=== PATIENT | male | born 1945 | race Caucasian/White ===

== ENCOUNTER → 2017-01-12 13:04 | Outpatient (CLI) | payer MEDICARE, OTHER ==
[2014-12-01 13:54] VITALS: BMI 31.5
[~2017-01-12 13:04] MED LIST: ALBUTEROL0.63 MG/3 INH; BAYER CHEWABLE81 MG PO; BENADRYL25 MG PO; BENADRYL50 MG PO; COUMADIN5 MG PO; ELIQUIS2.5 MG PO; FLUTICASONE PRO16 GM NASAL; GLUCOPHAGE500 MG PO; HYDROCODONE-APA1 TAB PO; MEDROL DOSE PACK4 MG PO; MS CONTIN15 MG PO; PERCOCET 10/3251 TA1 PO; PLAVIX75 MG PO; PRILOSEC20 MG PO; PROAIR HFA8.5 GM INH; PROPYLTHIOURACI50 MG PO; UROXATRAL10 MG PO; ZIAC 10-6.25 MG1 TAB PO; ZOCOR40 MG PO
== END | disposition home or self-care (01) ==
LOC: D.RT 13:04
DX: J44.9 Chronic obstructive pulmonary disease, unspecified (principal)

== ENCOUNTER 2017-09-17 18:20 | Inpatient (IN) | payer MEDICARE, OTHER ==
[~2017-09-17] VITALS: Ht 167.6 cm; Wt 85.5 kg
--- NOTE | ~2017-09-17 | EC ---
PATIENT:DON MORA DATE OF SERVICE: 09/17/17 SEX: M MEDICAL RECORD: [id number] DATE OF : [birth year] LOCATION:D.M2 D.213 AGE OF PATIENT: 72 ADMISSION DATE: 09/17/17 REFERRING PHYSICIAN: INTERPRETING PHYSICIAN: MIRIAM MCLAUGHLIN MD ECHOCARDIOGRAM REPORT ECHO CHARGES 4 ECHO COMPLETE Date: 09/19 CLINICAL DIAGNOSIS: CHF ECHOCARDIOGRAPHIC MEASUREMENTS (adult normal given) AC root (d.<3.7cm) 3.1 cm LV Septum d (<1.2 cm> 0.9 cm Valve Excursion 1.9 cm LV Septum (systole) 1.4 cm Left Atria (s.<4.0cm> 3.3 cm LVPW d(<1.2cm) 0.8 cm RV (d.<2.3cm) 3.0 cm LVPW (sytole) 1.5 cm LV diastole(<5.6CM) 6.2 cm MV E-F(>70mm/sec) cm LV systole 4.2 cm LVOT Diameter 1.5 cm MV exc.(>10mm) cm Est.ejection fraction (50-75%) % DOPPLER: LVIT cm/sec A 89.0 cm/sec E 64.0 cm/sec LA cm/sec RVSP 79.2 mmHg LVOT 64.0 cm/sec AOP1/2T m/s Asc. Ao 120 cm/sec RVOT 58.0 cm/sec RA cm/sec PA 85.0 cm/sec AV Gradient Peak 5.8 mmHg AV Mean 2.5 mmHg AV Area 0.9 cm MV Gradient Peak 4.8 mmHg MV Mean 1.6 mmHg MV Area cm COMMENTS: Soccer Player: Sina BAINSOE Reservation Clerk: 1 Dr. Mclaughlin TAPE# PACS Pericardial Effusion N DATE OF SERVICE: 09/19/2017 PROCEDURE: Echocardiogram. FINDINGS: 1. Left ventricular chamber size is mildly dilated. Left ventricular systolic function is markedly reduced, overall ejection fraction 20%. 2. Left atrium is within normal limits at 3.3 cm. Right atrium and right ventricle chamber sizes are mildly dilated. 3. Valvular structures have normal structure and motion. ECHOCARDIOGRAM REPORT [id number] DON MORA 4. Doppler interrogation reveals moderate mitral regurgitation, severe tricuspid regurgitation, no other valvular insufficiency or stenosis. Pulmonary systolic pressure is estimated at 80 mmHg. 5. No evidence of pericardial effusion or left ventricular thrombus. TRANSINT:[id number] Voice Confirmation ID: [id number] DOCUMENT ID: [id number] MIRIAM MCLAUGHLIN MD at 1218 CC: [id number] DICTATION DATE: 09/19/17 1129 GAMING SURVEILLANCE OBSERVER: 09/19/17 1255 ADM IN [facility] [address] [id number]
[2017-09-17 18:50] LABS: BASOPHILS 0.2 % (0-2); EOSINOPHILS 0.2 % (0-7); HEMATOCRIT 25.9 % (42.0-54.0); HEMOGLOBIN 7.6 g/dL (13.5-17.5); IMMATURE GRANULOCYTES 0.2 % (0-5); LYMPHOCYTES 7.5 % (15-50); MCH 22.4 pg (26.0-34.0); MCHC 29.3 g/dL (31.0-37.0); MCV 76.4 fL (80.0-100.0); MEAN PLATELET VOLUME 9.8 fL (7.4-10.4); MONOCYTES 10.8 % (2-11); NEUTROPHILS 81.1 % (40-80); RBC 3.39 10x6/uL (4.20-6.10); RDW 17.5 % (11.5-14.5); WBC 8.6 10x3/uL (4.8-10.8)
[2017-09-17 18:51] LABS: PLATELET COUNT 344 10x3/uL (130-400)
[2017-09-17 19:28] LABS: ALBUMIN 3.3 g/dL (3.4-5.0); ANION GAP 12.7 mmol/L (8-16); BILIRUBIN - TOTAL 0.52 mg/dL (0.2-1.3); CARBON DIOXIDE 31.2 mmol/L (21.0-32.0); CREATININE - SERUM 1.3 mg/dL (0.6-1.3); POTASSIUM - SERUM 3.9 mmol/L (3.5-5.1); PROTEIN - SERUM 6.7 g/dL (6.4-8.2); TROPONIN-I 0.028 ng/mL (0.000-0.060)
[2017-09-17] MEDS ORDERED: PLAVIX75 MG PO (21:08)
[2017-09-17] MEDS ORDERED: DIPHEDRYL25 MG PO (21:09)
[2017-09-17] MEDS ORDERED: ASPIRIN81 MG PO (21:10)
[2017-09-17 21:11] VITALS: BP 148/68; BMI 27.3
[2017-09-18] VITALS: BP 128/59
[2017-09-18 04:00] VITALS: BP 151/78
[2017-09-18 07:49] VITALS: BP 150/80
[2017-09-18 11:22] VITALS: BP 155/80
[2017-09-18 15:22] VITALS: BP 157/74
[2017-09-18 15:26] LABS: APTT 30.8 SECONDS (22.8-39.4); INR 1.29 (0.85-1.17); PROTIME 15.6 SECONDS (11.6-15.0)
[2017-09-18 15:28] LABS: D-DIMER-QUANTITATIVE 2.1 ug/mLFEU (0.20-0.54)
[2017-09-18 15:39] LABS: % SATURATION 4 % (15-55); IRON 21 ug/dl (35-150); TOTAL IRON BIND CAPACITY 427 ug/dl (260-445); UNSAT IRON BIND CAPACITY 406 ug/dl (150-375)
[2017-09-18 16:00] LABS: THYROID STIMULATING HORMONE 1.49 uIU/mL (0.36-3.74)
[2017-09-18 17:28] LABS: APPEARANCE CLEAR (CLEAR); BILIRUBIN NEGATIVE (NEGATIVE); COLOR YELLOW (YELLOW); GLUCOSE NEGATIVE (NEGATIVE); KETONE NEGATIVE (NEGATIVE); NITRITE NEGATIVE (NEGATIVE); PROTEIN NEGATIVE (NEGATIVE); UROBILINOGEN NORMAL (NORMAL)
[2017-09-18 20:00] VITALS: BP 142/64
[2017-09-19 04:00] VITALS: BP 144/64
[2017-09-19 05:45] LABS: BASOPHILS 0.1 % (0-2); HEMATOCRIT 27.3 % (42.0-54.0); HEMOGLOBIN 8.2 g/dL (13.5-17.5); IMMATURE GRANULOCYTES 0.2 % (0-5); LYMPHOCYTES 5.3 % (15-50); MCV 76.5 fL (80.0-100.0); MEAN PLATELET VOLUME 9.4 fL (7.4-10.4); MONOCYTES 10.3 % (2-11); NEUTROPHILS 83.1 % (40-80); RBC 3.57 10x6/uL (4.20-6.10); RDW 17.3 % (11.5-14.5); WBC 8.4 10x3/uL (4.8-10.8)
[2017-09-19 05:46] LABS: PLATELET COUNT 255 10x3/uL (130-400)
[2017-09-19 05:59] LABS: ANION GAP 6.9 mmol/L (8-16); CALCIUM 8.4 mg/dL (8.5-10.1); CARBON DIOXIDE 32.5 mmol/L (21.0-32.0); CREATININE - SERUM 1.1 mg/dL (0.6-1.3); POTASSIUM - SERUM 3.4 mmol/L (3.5-5.1)
[2017-09-19 06:00] LABS: INR 1.37 (0.85-1.17); PROTIME 16.4 SECONDS (11.6-15.0)
[2017-09-19 07:59] VITALS: BP 150/71
[2017-09-19 11:35] VITALS: BP 148/70
[2017-09-19 15:33] VITALS: BP 151/69
[2017-09-19 20:00] VITALS: BP 141/69
[2017-09-20] VITALS: BP 124/69
[2017-09-20 06:08] LABS: BASOPHILS 0.3 % (0-2); EOSINOPHILS 1.2 % (0-7); HEMOGLOBIN 8.2 g/dL (13.5-17.5); IMMATURE GRANULOCYTES 0.3 % (0-5); LYMPHOCYTES 7.5 % (15-50); MCH 22.6 pg (26.0-34.0); MCHC 29.3 g/dL (31.0-37.0); MCV 77.1 fL (80.0-100.0); MONOCYTES 11.1 % (2-11); NEUTROPHILS 79.6 % (40-80); PLATELET COUNT 282 10x3/uL (130-400); RBC 3.63 10x6/uL (4.20-6.10); RDW 17.6 % (11.5-14.5); WBC 7.5 10x3/uL (4.8-10.8)
[2017-09-20 06:21] LABS: CALCIUM 8.2 mg/dL (8.5-10.1); CARBON DIOXIDE 28.4 mmol/L (21.0-32.0); CREATININE - SERUM 1.3 mg/dL (0.6-1.3)
[2017-09-20 06:22] LABS: POTASSIUM - SERUM 4.4 mmol/L (3.5-5.1)
[2017-09-20 08:35] VITALS: BP 142/81
[2017-09-20 09:46] LABS: FOLATE (FOLIC ACID) - SERUM 5.2 ng/mL (>3.0)
[2017-09-20 11:42] VITALS: BP 148/76
[2017-09-20 15:40] VITALS: BP 146/76
[2017-09-20 20:00] VITALS: BP 150/69
[2017-09-21 01:51] VITALS: BP 143/74
[2017-09-21 05:51] LABS: BASOPHILS 0.2 % (0-2); EOSINOPHILS 0.8 % (0-7); HEMATOCRIT 28.5 % (42.0-54.0); HEMOGLOBIN 8.4 g/dL (13.5-17.5); IMMATURE GRANULOCYTES 0.2 % (0-5); LYMPHOCYTES 3.8 % (15-50); MCH 22.6 pg (26.0-34.0); MCHC 29.5 g/dL (31.0-37.0); MCV 76.6 fL (80.0-100.0); MEAN PLATELET VOLUME 9.5 fL (7.4-10.4); MONOCYTES 8.9 % (2-11); NEUTROPHILS 86.1 % (40-80); PLATELET COUNT 254 10x3/uL (130-400); RBC 3.72 10x6/uL (4.20-6.10); RDW 17.8 % (11.5-14.5); WBC 9.7 10x3/uL (4.8-10.8)
[2017-09-21 05:54] VITALS: BP 148/80
[2017-09-21 06:01] LABS: ANION GAP 11.9 mmol/L (8-16); CALCIUM 8.4 mg/dL (8.5-10.1); CARBON DIOXIDE 27.1 mmol/L (21.0-32.0); CREATININE - SERUM 1.1 mg/dL (0.6-1.3)
[2017-09-21 06:30] LABS: INR 1.48 (0.85-1.17); PROTIME 17.4 SECONDS (11.6-15.0)
[2017-09-21 08:18] VITALS: BP 141/69
[2017-09-21 11:09] VITALS: BP 144/72
[2017-09-21 14:16] VITALS: BMI 31.2
[2017-09-21 16:03] VITALS: BP 144/76
[2017-09-21 20:22] VITALS: BP 148/70
[2017-09-22 01:50] VITALS: BP 168/691
[2017-09-22 05:25] VITALS: BP 141/76
[2017-09-22 06:05] LABS: BASOPHILS 0.1 % (0-2); EOSINOPHILS 0.9 % (0-7); HEMATOCRIT 30.1 % (42.0-54.0); HEMOGLOBIN 8.8 g/dL (13.5-17.5); IMMATURE GRANULOCYTES 0.2 % (0-5); LYMPHOCYTES 5.3 % (15-50); MCH 22.6 pg (26.0-34.0); MCHC 29.2 g/dL (31.0-37.0); MCV 77.2 fL (80.0-100.0); MEAN PLATELET VOLUME 10.1 fL (7.4-10.4); MONOCYTES 7.8 % (2-11); NEUTROPHILS 85.7 % (40-80); PLATELET COUNT 277 10x3/uL (130-400); RDW 18.2 % (11.5-14.5); WBC 9.8 10x3/uL (4.8-10.8)
[2017-09-22 06:19] LABS: ANION GAP 13.4 mmol/L (8-16); CALCIUM 8.6 mg/dL (8.5-10.1); CARBON DIOXIDE 27.3 mmol/L (21.0-32.0); CREATININE - SERUM 1.1 mg/dL (0.6-1.3); POTASSIUM - SERUM 3.7 mmol/L (3.5-5.1)
[2017-09-22 08:35] VITALS: BP 158/70
[2017-09-22 11:40] VITALS: Ht 167.6 cm; Wt 85.5 kg
== END 2017-09-22 15:30 | disposition home or self-care (01) | DRG 811 ==
LOC: D.ER 18:20 → D.M2 19:07 → D.SDCHOLD 09-18 07:28 → D.M2 09-18 07:28
PROVIDERS: Family Medicine; Internal Medicine Gastroenterology; Internal Medicine Nephrology
PROC: 0DB78ZX Excision of Stomach, Pylorus, Via Natural or Artificial Opening Endoscopic, Diagnostic (ICD-10-PCS; 2017-09-19)
PROC: 0DB98ZX Excision of Duodenum, Via Natural or Artificial Opening Endoscopic, Diagnostic (ICD-10-PCS; principal; 2017-09-19 17:00)
PROC: 0DJD8ZZ Inspection of Lower Intestinal Tract, Via Natural or Artificial Opening Endoscopic (ICD-10-PCS; 2017-09-21)
DX: D50.9 Iron deficiency anemia, unspecified (principal); J96.21 Acute and chronic respiratory failure with hypoxia; I50.20 Unspecified systolic (congestive) heart failure; J44.1 Chronic obstructive pulmonary disease with (acute) exacerbation; I11.0 Hypertensive heart disease with heart failure; E11.51 Type 2 diabetes mellitus with diabetic peripheral angiopathy without gangrene; E78.5 Hyperlipidemia, unspecified; E05.90 Thyrotoxicosis, unspecified without thyrotoxic crisis or storm; K44.9 Diaphragmatic hernia without obstruction or gangrene; K29.70 Gastritis, unspecified, without bleeding; D51.9 Vitamin B12 deficiency anemia, unspecified; K64.8 Other hemorrhoids; K57.30 Diverticulosis of large intestine without perforation or abscess without bleeding

== ENCOUNTER → 2017-10-22 13:59 | Outpatient (CLI) | payer MEDICARE, OTHER ==
[2017-09-22 11:40] VITALS: BMI 31.2
[~2017-10-22 13:59] MED LIST changes: +ASPIRIN81 MG PO; +DIPHEDRYL25 MG PO
== END | disposition home or self-care (01) ==
LOC: D.CT 13:59
DX: R77.8 Other specified abnormalities of plasma proteins (principal)

== ENCOUNTER → 2017-12-04 07:46 | Outpatient (CLI) | payer MEDICARE, OTHER ==
[2017-09-22 11:40] VITALS: BMI 31.2
== END | disposition home or self-care (01) ==
LOC: D.NM 07:46
DX: C61 Malignant neoplasm of prostate (principal)

== ENCOUNTER → 2018-01-24 12:57 | Outpatient (CLI) | payer MEDICARE, OTHER ==
[2017-09-22 11:40] VITALS: BMI 31.2
== END | disposition home or self-care (01) ==
LOC: D.MRI 12:57
DX: M54.6 Pain in thoracic spine (principal)

== ENCOUNTER → 2018-02-11 13:43 | Outpatient (CLI) | payer MEDICARE, OTHER ==
[2017-09-22 11:40] VITALS: BMI 31.2
== END | disposition home or self-care (01) ==
LOC: D.RT 13:43
DX: J44.9 Chronic obstructive pulmonary disease, unspecified (principal)

== ENCOUNTER → 2019-04-11 09:38 | Outpatient (CLI) | payer MEDICARE, OTHER ==
[2017-09-22 11:40] VITALS: BMI 31.2
== END | disposition home or self-care (01) ==
LOC: D.MRI 09:38
PROVIDERS: ATTEND Orthopaedic Surgery
DX: M75.122 Complete rotator cuff tear or rupture of left shoulder, not specified as traumatic (principal)

== ENCOUNTER 2019-05-07 06:50 | Day surgery (SDC) | payer MEDICARE, OTHER ==
[2019-05-06 10:08] LABS: BASOPHILS 0.1 % (0-2); EOSINOPHILS 1.9 % (0-7); HEMOGLOBIN 13.1 g/dL (13.5-17.5); IMMATURE GRANULOCYTES 0.2 % (0-5); LYMPHOCYTES 9.4 % (15-50); MCH 29.9 pg (26.0-34.0); MCHC 32.8 g/dL (31.0-37.0); MCV 91.3 fL (80.0-100.0); MEAN PLATELET VOLUME 10.7 fL (7.4-10.4); MONOCYTES 8.1 % (2-11); NEUTROPHILS 80.3 % (40-80); PLATELET COUNT 227 10x3/uL (130-400); RBC 4.38 10x6/uL (4.20-6.10); RDW 14.4 % (11.5-14.5); WBC 12.2 10x3/uL (4.8-10.8)
[2019-05-06 10:17] LABS: ANION GAP 7.6 mmol/L (8-16); CALCIUM 9.1 mg/dL (8.5-10.1); CARBON DIOXIDE 32.3 mmol/L (21.0-32.0); CREATININE - SERUM 1.1 mg/dL (0.6-1.3); INR 1.07 (0.85-1.17); POTASSIUM - SERUM 3.9 mmol/L (3.5-5.1); PROTIME 13.4 SECONDS (11.6-15.0)
[~2019-05-07] VITALS: Ht 167.6 cm; Wt 69.9 kg
[~2019-05-07 06:50] MED LIST changes: +CALCIUM 500 +1 EAC3 PO; +MUCINEX DM ER1 EAC1 PO; +MULTI-DAY VITAM1 TAB PO; +NIACIN250 M1 PO; +TESSALON PERLE100 MG PO; +VIBRAMYCIN 100100 MG PO
[2019-05-07 07:06] VITALS: BP 147/57; Ht 167.6 cm; Wt 69.9 kg
[2019-05-07] MEDS ORDERED: ZOFRAN ODT4 MG/UDTAB PO (09:24)
[2019-05-07] MEDS ORDERED: PERCOCET 5-3251 TAB PO (09:24)
[2019-05-07] MEDS ORDERED: SENNA LAXATIVE8.6 MG PO (09:24)
--- NOTE | 2019-05-07 13:13 | NUR ---
DC INSTRUCTIONS GIVEN TO PT/SPOUSE. STATE UNDERSTANDING. DC'D IV CATH FULLY INTACT.
--- NOTE | 2019-05-07 13:25 | NUR ---
PT LEFT UNIT VIA WC AT 1324
--- NOTE | 2019-05-08 06:42 | OP ---
PATIENT NAME: DON OLGUIN MEDICAL RECORD: [id number] :47 LOCATION:[facility] ADMISSION DATE: SURGEON: JAKOB CALDERON DO DATE OF OPERATION: 05/07/2019 PROCEDURE PERFORMED: Left shoulder arthroscopy with subacromial decompression, distal clavicle excision, biceps tenodesis, and rotator cuff repair with Regeneten, and labral debridement. PREOPERATIVE DIAGNOSES: Left shoulder subacromial impingement, AC joint arthritis, rotator cuff tear and SLAP tear. POSTOPERATIVE DIAGNOSES: Left shoulder subacromial impingement, AC joint arthritis, rotator cuff tear and SLAP tear. INDICATIONS: Ms. Olguin is a 74-year-old male who has had left shoulder pain for quite some time. He was tired of dealing with the pain, has been affecting his activities of living. An MRI, which showed a frayed supraspinatus at the insertion site and a SLAP tear as well as acromioclavicular joint arthritis and subacromial impingement. I informed the patient of the risks including infection, bleeding, re-tear of the tendon, nonhealing of the tendon repair, fracture, failure of implants, and even and he signed the consent. SURGEON: Jakob Calderon DO DESCRIPTION OF PROCEDURE: Patient was given a block by anesthesia in the preoperative area, given 900 mg clindamycin, taken to the operative suite, laid in the right lateral decubitus position with the left arm up. The left shoulder was then prepped and draped in sterile fashion. Timeout was performed and everybody was in agreement as to the correct side, site, and patient and procedure. He had been sedated and LMA placed prior to this. The procedure was begun by making with an 18-gauge spinal needle into the joint through the posterior portal, insufflated with 60 mL of normal saline. We then attempted to get to the joint, it was not successful, so went into the subacromial space and made a second portal in the posterior aspect with an 11-blade scalpel, did a subacromial decompression, distal clavicle excision, and acromioplasty as well as debridement of the bursa and bursectomy on the rotator cuff. There was a tear seen on the bursal side of the rotator cuff at the supraspinatus. This was marked and then I went into the joint and the anterior portal site was established with an 11-blade scalpel. A SLAP tear was seen and the biceps tendon was cut. The labrum was debrided. The subscapularis tendon was intact; however, I did see the fraying and there were only a couple of fibers only left of the supraspinatus in the joint on the articular side as well. There was minimal arthritis seen in the joint and nothing in the inferior gutter, then turned off the water, and turned the suction on to remove the water and then the incision was extended off the lateral portal, which had been established prior to this with an #18 gauge spinal needle and #11 blade scalpel and a careful dissection was made down to the tear. The tear was debrided and the humerus was decorticated and then a single anchor was put in for suture tapes were used to bite through the supraspinatus tendon with a scorpion and then brought into the lateral, making a nice repair. We then put the Regeneten on top of that, stapled it medially and then into the bone laterally. The site was then irrigated and then, attention was drawn to the anterior OPERATIVE REPORT [id number] DON LOGUIN humerus. An incision was made. Careful dissection was made down to the long head of the bicep tendon. This was pulled out through the incision. Unicortical JuggerLoc fixation for biceps tenodesis was then placed after a hole was drilled in the anterior humerus and it was cinched down, cut and then tied to the biceps tendon and this was cut and the excess tendon was cut, the site was then irrigated as well. The site was then closed with 3-0 Vicryl in an inverted interrupted fashion and 4-0 Monocryl in the skin. Each of the portal sites were closed with 4-0 Monocryl inverted interrupted fashion and the rotator cuff repair. The deltoid fascia was closed with the 3-0 Vicryl in a simple fashion and the skin with 3-0 Vicryl in an inverted interrupted fashion and 4-0 Monocryl in the skin and then each of the sites were dressed with Dermabond and Telfa and Tegaderm. He was then awakened and taken to recovery in stable condition. BLOOD LOSS: Minimal. He was placed in a sling. COMPLICATIONS: None. TRANSINT:[id number] Voice Confirmation ID: [id number] DOCUMENT ID: [id number] JAKOB CALDERON DO at 0642 CC: [id number] DICTATION DATE: 05/07/19 1145 MACHINE CANDLE MOLDER: 05/07/192030 [facility] 05/07/[address] [id number] [place] [id number]
== END 2019-05-07 13:24 | disposition home or self-care (01) ==
LOC: D.OPS 06:50 → D.PAN 09:20 → D.OPS 09:20 → D.PAN 05-09 09:30
PROVIDERS: Anesthesiology; ATTEND Orthopaedic Surgery
DX: M25.812 Other specified joint disorders, left shoulder (principal); M19.019 Primary osteoarthritis, unspecified shoulder; M75.102 Unspecified rotator cuff tear or rupture of left shoulder, not specified as traumatic; S43.432A Superior glenoid labrum lesion of left shoulder, initial encounter; X58.XXXA Exposure to other specified factors, initial encounter; I10 Essential (primary) hypertension; E78.5 Hyperlipidemia, unspecified; E11.9 Type 2 diabetes mellitus without complications; J44.9 Chronic obstructive pulmonary disease, unspecified; Z79.84 Long term (current) use of oral hypoglycemic drugs

== ENCOUNTER → 2019-07-04 10:31 | Outpatient (CLI) | payer MEDICARE, OTHER ==
[2019-05-07 07:06] VITALS: BMI 24.9
[~2019-07-04 10:31] MED LIST changes: +PERCOCET 5-3251 TAB PO; +SENNA LAXATIVE8.6 MG PO; +ZOFRAN ODT4 MG/UDTAB PO
== END | disposition home or self-care (01) ==
LOC: D.RT 10:31
PROVIDERS: ATTEND Internal Medicine Pulmonary Disease
DX: J44.9 Chronic obstructive pulmonary disease, unspecified (principal)

== ENCOUNTER → 2019-08-01 09:01 | Outpatient (CLI) | payer MEDICARE, OTHER ==
[2019-05-07 07:06] VITALS: BMI 24.9
[2019-08-01 10:15] LABS: CREATININE - SERUM 1.4 mg/dL (0.6-1.3)
--- NOTE | 2019-08-03 09:31 | EC ---
PATIENT:DON MORA DATE OF SERVICE: 08/01/19 SEX: M MEDICAL RECORD: [id number] DATE OF : [birth year] LOCATION:[facility] AGE OF PATIENT: 74 ADMISSION DATE: 08/01/19 REFERRING PHYSICIAN: INTERPRETING PHYSICIAN: COLT HA MD ECHOCARDIOGRAM REPORT ECHO CHARGES 4 ECHO COMPLETE Date: 08/01/19 CLINICAL DIAGNOSIS: CHRONIC RESP. FAILURE, HX:HYPOXIA ECHOCARDIOGRAPHIC MEASUREMENTS (adult normal given) AC root (d.<3.7cm) 2.2 cm LV Septum d (<1.2 cm> 0.9 cm Valve Excursion 1.5 cm LV Septum (systole) 1.1 cm Left Atria (s.<4.0cm> 3.5 cm LVPW d(<1.2cm) 1.0 cm RV (d.<2.3cm) 3.2 cm LVPW (sytole) 1.1 cm LV diastole(<5.6CM) 4.7 cm MV E-F(>70mm/sec) cm LV systole 4.0 cm LVOT Diameter 1.4 cm MV exc.(>10mm) cm Est.ejection fraction (50-75%) % DOPPLER: LVIT cm/sec A 77 cm/sec E 62 cm/sec LA cm/sec RVSP 34.0 mmHg LVOT 59 cm/sec AOP1/2T m/s Asc. Ao 157 cm/sec RVOT 57 cm/sec RA cm/sec PA 80 cm/sec AV Gradient Peak 9.8 mmHg AV Mean 4.7 mmHg AV Area 0.6 cm MV Gradient Peak 2.3 mmHg MV Mean 1.2 mmHg MV Area cm COMMENTS: Neurology Technician: Ben CABRERA Credit Risk Management Director: Misha Ha TAPE# PACS Pericardial Effusion Y DATE OF SERVICE: 08/01/2019 PROCEDURE: Transthoracic echocardiogram with bubble study. FINDINGS: Left ventricle shows anterior apical dyskinesis and the ejection fraction is 30%. The left atrium is normal size; normal function. The aortic valve is not well visualized. Pressures appear to be normal. No ECHOCARDIOGRAM REPORT [id number] DON MORA obvious evidence of aortic stenosis. The mitral valve has mild mitral regurgitation. The tricuspid valve has trace tricuspid valve regurgitation. The right ventricular systolic pressures are 30-40 mmHg. The right ventricle is mildly dilated with normal function. Right atrium appears to be grossly normal. There is trace pericardial effusion. Bubble study was negative for right to left communication PFO or ASD. TRANSINT:[id number] Voice Confirmation ID: [id number] DOCUMENT ID: [id number] COLT HA MD at 0931 CC: [id number] DICTATION DATE: 08/02/19 1230 CONVEYOR BELT OPERATOR: 08/02/192026 [facility] CLI 08/01/19 [id number] [place] [address]
== END | disposition home or self-care (01) ==
LOC: D.ECHO 09:01 → D.CT 10:30
PROVIDERS: ATTEND Internal Medicine Pulmonary Disease
DX: J96.11 Chronic respiratory failure with hypoxia (principal)

== ENCOUNTER → 2019-08-28 09:19 | Outpatient (CLI) | payer MEDICARE, OTHER ==
[2019-05-07 07:06] VITALS: BMI 24.9
== END | disposition home or self-care (01) ==
LOC: D.HCCARDIO 09:19
PROVIDERS: ATTEND Internal Medicine Cardiovascular Disease
DX: I50.9 Heart failure, unspecified (principal)

== ENCOUNTER → 2019-09-05 13:17 | Outpatient (CLI) | payer MEDICARE, OTHER ==
[2019-05-07 07:06] VITALS: BMI 24.9
== END | disposition home or self-care (01) ==
LOC: D.US 13:17
PROVIDERS: ATTEND Internal Medicine Pulmonary Disease
DX: E04.1 Nontoxic single thyroid nodule (principal)

== ENCOUNTER 2019-09-10 12:14 | Outpatient (CLI) | payer MEDICARE, OTHER ==
[~2019-09-10] VITALS: Ht 167.6 cm; Wt 76.4 kg
--- NOTE | ~2019-09-10 | HEMODYNAMI ---
PATIENT:DON MORA MEDICAL RECORD: [id number] : 47 LOCATION:[facility] ADMISSION DATE: 09/10/19 Generatedon:09/10/201916:58 Patient name: DON MORA Patient #: [id number] SSN: [id number] : 1945 Date of study: 09/10/2019 Page: Of Hemodynamic Procedure Report Patient Data Patient Demographics Procedure consent was obtained First Name: DON Gender: Male Last Name: MORGAN : 1945 Middle Initial: FILIBERTO Age: 74 year(s) Patient #: [id number] Race: SSN: [id number] Additional ID: [id number] Contact details [address]: [address] [place] [address] State: [place] City: [place] Zip code: [address] Past Medical History Performed procedures and imaging results Date Procedure Procedure Results Comments 08/28/2019 Stress testing Positive->Intermediate with SPECT MPI risk Allergies Allergen Reaction Date Comments Reported Other allergy 09/10/2019 SHELLFISH, CRAB, Admission Admission Data Admission Date: 09/10/2019 Admission Time: 12:14 Arrival Date: 09/10/2019 Arrival Time: 0:00 Admit Source: Other Insurance Payor: Medicare [facility] #: [id number] Height (in.): 66 BSA: 1.86 (m2) Height (cm.): 167.64 BMI: 27.17 (kg/m2) Weight (lbs.): 168.35 Weight (kg.): 76.36 Lab Results Lab Result Date: 09/10/2019 Lab Result Time: 0:00 Biochemistry Name Units Result Min Max BUN mg/dl 23 --(----)-* 7 18 Creatinine mg/dl 1.5 --(----)-* 0.6 1.3 eGFR ml/min 49 *-(----)-- 90 120 NONAFRICAN CBC Name Units Result Min Max Hematocrit % 40.1 -*(----)-- 42 54 Hemoglobin g/dl 13.2 -*(----)-- 13.5 17.5 Procedure Procedure Types Cath Procedure Diagnostic Procedure [facility] w/Coronaries FFR/IVUS FFR Initial FFR Additional Sedation Charges Moderate Sedation up to 30 minutes Procedure Description Procedure Date Procedure Date: 09/10/2019 Procedure Start Time: 16:24 Procedure End Time: 16:55 Procedure Staff Name Function Bernard Madison MD Performing Physician Keysha Hanna RT Monitor Traci Muniz RT Scrub Joyce Koch RN Nurse Dominique Valladares RT Manager Ems Procedure Data Cath Procedure Fluoroscopy Diagnostic fluoroscopy Total fluoroscopy Time: 7.9 time: 7.9 min min Diagnostic fluoroscopy Total fluoroscopy dose: 739 dose: 739 mGy mGy Contrast Material Contrast Material Type Amount (ml) Isovue 300 108 Entry Location Entry Primary Successful Side Size Upsize Upsize Entry Closure Ortega ccessful Closure Location (Fr) 1 (Fr) 2 (Fr) Remarks Device Remarks Radial Right 6 Fr Mechanical artery Short Compression Estimated blood loss: 5 ml Diagnostic catheters Device Type Used For End Catheter Placement DIAGNOSTIC Yury 110cm Multi-vessel 5Fr catheter ([id number]) Angiography Procedure Complications No complications Procedure Medications Medication Administration Route Dosage Oxygen etCO2 Nasal cannula 3 l/min Lidocaine 2% added to field 20 Heparin Flush Bag added to field 2 bags (1000units/500ml NS) 0.9% NaCl I.V. 100 ml/hr Versed I.V. 1 mg Fentanyl I.V. 50 mcg Radial Cocktail I.A. 1 syringe (Verapamil 2mg/Nitro 400mcg/Heparin 1500units) Versed I.V. 1 mg Fentanyl I.V. 50 mcg Versed I.V. 1 mg Fentanyl I.V. 50 mcg Heparin Bolus I.V. 2000 units Versed I.V. 1 mg Fentanyl I.V. 50 mcg Hemodynamics Rest BSA: 1.86 (m2) HGB: 13.2 (g/dl) O2 Consumption: Estimated: 207.36 (ml/min) O2 Co nsumption indexed: Estimated:111.48 (ml/min/m) Heart Rate: 60 (bpm) Pressure Samples Time Site Value (mmHg) Purpose Heart Use Rate(bpm) 16:28 LV 100/-4,1 Snapshot 75 16:28 AO 96/41(60) Pullback 77 16:28 LV 102/2,13 Pullback 77 Gradients Valve Time Site 1 Site 2 Mean SEP/DFP Peak To Heart Use (mmHg) (sec/min) Peak Rate (mmHg) (bpm) Aortic 16:28 LV AO 6 11 6 77 102/2,13 96/41(60) Calculations Valve P-P Mean Valve Index Valve Source Name Gradient Area Flow (cm2) Aortic 6 6 6 6 Snapshots Pre Cath Intra NCS Post Cath Vital Signs Time Heart Resp SPO2 etCO2 NIBP (mmHg) Rhythm Pain Sedation Rate (ipm) (%) (mmHg) Status Level (bpm) 16:14:16 70 12 92 35.1 139/78(111) NSR 0 (11) 10(A) , No pain 16:18:34 76 12 93 29.9 130/67(98) NSR 0 (11) 10(A) , No pain 16:22:48 78 14 90 2.9 108/54(85) NSR 0 (11) 10(A) , No pain 16:26:58 77 14 89 16.4 113/58(79) NSR 0 (11) 10(A) , No pain 16:31:10 69 14 89 32.2 105/52(82) NSR 0 (11) 10(A) , No pain 16:35:16 84 13 89 29.9 115/67(86) NSR 0 (11) 10(A) , No pain 16:39:28 74 11 90 0 111/54(77) NSR 0 (11) 10(A) , No pain 16:43:42 78 14 89 0 108/53(81) NSR 0 (11) 10(A) , No pain 16:47:56 78 15 90 11.9 98/49(74) NSR 0 (11) 10(A) , No pain 16:53:52 75 14 92 26.9 50/25(40) NSR 0 (11) 10(A) , No pain Medications Time Medication Route Dose Verified Delivered Reason Not es Effectiveness by by 16:15:59 Oxygen etCO2 3 l/min Bernard Buffie used for Nasal Los Koch customer support consultant cannula 16:16:20 Lidocaine 2% added 20ml Bernard Bernard for local to vial Los Madison MD anesthetic field 16:16:25 Heparin Flush added 2 bags Bernard Bernard used for Bag to Los Madison MD procedure (1000units/500ml field NS) 16:16:35 0.9% NaCl I.V. 100 Bernard Buffie Per physician ml/hr Los Koch RN 16:20:51 Versed I.V. 1 mg Bernard Buffie for sedation Los Koch RN 16:20:57 Fentanyl I.V. 50 mcg Bernard Buffie for sedation Los Koch RN 16:28:14 Radial Cocktail I.A. 1 Bernard Bernard for (Verapamil syringe Los Madison MD vasodilation 2mg/Nitro 400mcg/Heparin 1500units) 16:28:21 Versed I.V. 1 mg Bernard Buffie for sedation Los Koch RN 16:28:25 Fentanyl I.V. 50 mcg Bernard Buffie for sedation Los Koch RN 16:31:05 Versed I.V. 1 mg Bernard Buffie for sedation Los Koch RN 16:31:09 Fentanyl I.V. 50 mcg Bernard Buffie for sedation Los Koch RN 16:37:28 Heparin Bolus I.V. 2000 Bernard Buffie for carlo ified units Los Koch RN anticoagulation with dr madison for ifr 16:46:26 Versed I.V. 1 mg Bernard Buffie for sedation Los Koch RN 16:46:30 Fentanyl I.V. 50 mcg Bernard Buffie for sedation Los Koch RN Procedure Log Time Note 15:22:50 Informed consent obtained and on chart 15:23:02 Diagnostic Cath Status : Elective 15:23:57 Arrival Date: 09/10/2019 12:00:00 AM 15:23:58 Admit Source: Other 15:25:48 Insurance Payor : Medicare 15:26:21 Patient Height : 66 inches 15:26:29 Patient Weight : 168.35 lbs 15:27:27 Lab Result : Hemoglobin 13.2 g/dl 15::27 Lab Result : eGFR NONAFRICAN 49 ml/min 15:27:27 Lab Result : BUN 23 mg/dl 15:27:27 Lab Result : Creatinine 1.5 mg/dl 15:27:27 Lab Result : Hematocrit 40.1 % 15:28:24 Patient allergic to Other allergySHELLFISH, CRAB, 15:31:31 Procedure Status Elective Heart Cath (OP). 15:31:34 Dominique Blaine RT(R) (CV) sent for patient. Start room use. 15:31:36 Time tracking: Regular hours (M-F 7:00 - 5:00) 15:31:40 Plan of Care:Hemodynamics will remain stable., Cardiac rhythm will remain stable., Comfort level will be maintained., Respiratory function will remain adequate., Patient/ family verbilizes understanding of procedure., Procedure tolerated without complication., Recovers from procedure without complications.. 15:31:51 H&P Date Dictated: 08/18/2019 Within 30 days and on chart.. 15:31:53 Pre-procedure instructions explained to patient. 15:31:53 Pre-op teaching completed and patient verbalized understanding. 15:31:55 Family unavailable. 15:31:56 Patient NPO since Midnight. 15:32:02 Lab results completed and on chart. 15:32:13 Alarms reviewed by R. N. 15:32:13 Sharps counted by scrub and verified by R.N. 16:07:47 Patient received from Pre/Post Procedure Room to CCL 1 Alert and oriented. Tansferred to table in Supine position. 16:07:55 Warm blankets applied, and coleen hugger turned on for patient comfort. 16:07:56 Correct patient and procedure confirmed by team. 16:07:56 ECG and BP/O2 sat monitors applied to patient. 16:13:15 Vital chart was started 16:13:16 Baseline sample Acquired. 16:13:20 Rhythm: sinus rhythm 16:13:22 Full Disclosure recording started 16:13:25 Is the patient allergic to Iodine/contrast media? Yes. 16:13:27 Was the patient premedicated? Yes 16:14:31 Is patient on blood thinner?Yes 16:14:34 ACC The patient was administered the following blood thiners within the last 24 hours: ACCPlavix 16:14:37 Patient diabetic? No. 16:14:40 Previous problem with sedation/anesthesia? No ? 16:14:42 Snore? Yes 16:14:43 Sleep apnea? No 16:14:43 Deviated septum? No 16:14:44 Opens mouth fully? Yes 16:14:46 Sticks out tongue? Yes 16:15:02 Airway obstruction? Yes COPD 16:15:08 Dentures? No ? 16:15:13 Pre procedure: right dorsailis pedis pulse 2+ Normal; easily identifiable; not easily obliterated 16:15:15 Pre procedure: left dorsailis pedis pulse 2+ Normal; easily identifiable; not easily obliterated 16:15:17 Modified Jairo's test Radial < 7 seconds 16:15:19 Patient pain scale 0/10 ?. 16:15:24 IV patent on arrival in left forearm with 0.9% NaCl at [facility]. 16:15:55 Stress Test: yes; abnormal ? 16:15:59 Oxygen 3 l/min etCO2 Nasal cannula was administered by Joyce Koch RN; used for procedure; Verbal order read back and verified. 16:16:04 Risk of Mortality: ? 16:16:20 Lidocaine 2% 20ml vial added to field was administered by Bernard Madison MD; for local anesthetic; Verbal order read back and verified. 16:16:25 Heparin Flush Bag (1000units/500ml NS) 2 bags added to field was administered by Bernard Madison MD; used for procedure; Verbal order read back and verified. 16:16:35 0.9% NaCl 100 ml/hr I.V. was administered by Joyce Koch RN; Per physician; Verbal order read back and verified. 16:18:10 Risk of blood transfusion: 0.1 16:18:13 Risk of JAILENE: 0.1 16:18:33 notified of start of procedure 16:18:41 Right Radial & Right Groin area was prepped with chlora-prep and draped in sterile fashion 16:18:44 Physician arrived 16:18:44 --------ALL STOP TIME OUT------ 16:18:44 Final Timeout: patient, procedure, and site verified with staff and physician. All members of the team are in agreement. 16:18:47 Right Radial & Right Groin site verified by team. 16:18:50 Fire Safety Assessment: A--An alcohol-based skin anteseptic being used preoperatively., C--Open oxygen or nitrous oxide is being used., D--An ESU, laser, or fiber-optic light is being used. 16:18:53 Physical assessment completed. ASA score P 2 - A patient with mild systemic disease as per Bernard Madison MD. 16:18:58 3a) 45-59 Moderately reduced kidney function. 16:19:03 Maximum allowable contrast dose (3.7 X eGFR X 0.75)135 ml. 16:19:07 Sedation plan: IV Moderate Sedation Medication:Versed, Fentanyl 16:19:14 Use device set Radial Dx or PCI 16:19:15 ACIST Syringe (87752) opened to sterile field. 16:19:15 Medline Cath Pack ([id number]) opened to sterile field. 16:19:16 Bag Decanter (2002) opened to sterile field. 16:19:16 ACIST Hand Control (29530) opened to sterile field. 16:19:17 ACIST Manifold (13071) opened to sterile field. 16:19:17 Tegaderm 4 x 4 (1626W) opened to sterile field. 16:19:18 MBrace Wrist Support (726233467) opened to sterile field. 16:19:19 NEEDLE Cook 21G 4cm Radial (B11547) opened to sterile field. 16:19:20 SHEATH 6FR RAIN (5174293) opened to sterile field. 16:19:21 EMERALD Guide Wire (491-104) opened to sterile field. 16:20:51 Versed 1 mg I.V. was administered by Joyce Koch RN; for sedation; Verbal order read back and verified. 16:20:57 Fentanyl 50 mcg I.V. was administered by Joyce Koch RN; for sedation; Verbal order read back and verified. 16:23:54 Procedure started. 16:24:11 Local anesthetic to right radial artery with Lidocaine 2% by Bernard Madison MD.INITIAL ACCESS ONLY 16:25:19 A 6 Fr Short sheath was inserted into the Right Radial artery 16:26:56 A DIAGNOSTIC Yury 110cm 5Fr catheter ([id number]) was advanced over the wire and used for Multi-vessel Angiography. 16:28:14 Radial Cocktail (Verapamil 2mg/Nitro 400mcg/Heparin 1500units) 1 syringe I.A. was administered by Bernard Madison MD; for vasodilation; Verbal order read back and verified. 16:28:15 LV hemodynamics recorded. 16:28:17 LV gram done using DUNHAM 16:28:21 Versed 1 mg I.V. was administered by Joyce Koch RN; for sedation; Verbal order read back and verified. 16:28:25 Fentanyl 50 mcg I.V. was administered by Joyce Koch RN; for sedation; Verbal order read back and verified. 16:28:49 EF : 50 % 16:30:39 LCA angiography performed. 16:30:43 Injector settings: Ml/sec: 3, Volume: 6, 16:30:52 RCA angiography performed. 16:30:55 Injector settings: Ml/sec: 3, Volume: 6, 16:31:05 Versed 1 mg I.V. was administered by Joyce Koch RN; for sedation; Verbal order read back and verified. 16:31:09 Fentanyl 50 mcg I.V. was administered by Joyce Koch RN; for sedation; Verbal order read back and verified. 16:35:20 [place] Verrata Plus pressure wire (20698P) opened to sterile field. 16:35:21 TUBING High Pressure Extension Tubing (Los) (SD0476Y) opened to sterile field. 16:35:23 INFLATOR Merit BasixCompak (SD3142) opened to sterile field. 16:37:04 Proceeding to intervention. 16:37:15 5 Fr ebu 3.5 guide catheter was inserted over the wire 16:37:20 FFR/IFR wire advanced. 16:37:22 Baseline FFR 1. 16:37:28 Heparin Bolus 2000 units I.V. was administered by Joyce Koch RN; for anticoagulation; verified with dr madison for ifr Verbal order read back and verified. 16:39:42 Wire advanced across lesion. 16:41:52 pCirc lesion measured at 0.92 with IFR 16:46:26 Versed 1 mg I.V. was administered by Joyce Koch RN; for sedation; Verbal order read back and verified. 16:46:30 Fentanyl 50 mcg I.V. was administered by Joyce Koch RN; for sedation; Verbal order read back and verified. 16:48:27 pLAD lesion measured at 0.81 with IFR 16:49:43 Wire removed. 16:49:45 Guide catheter removed. 16:49:47 ZEPHYR REGULAR TR BAND (973722) opened to sterile field. 16:50:53 Sheath removed intact; hemostasis achieved with Mechanical Compression to the Right Radial artery. 16:50:54 Procedure ended.(Physican Out) 16:52:39 Fluoroscopy time 07.90 minutes. 16:52:44 Fluoroscopy dose: 739 mGy 16:52:44 Flurop Dose total: 739 16:52:50 Dose Area Product 65602 mGy/cm. 16:52:55 Contrast amount:Isovue 300 108ml. 16:52:57 Maximum allowable dose exceeded? No. 16:53:00 Sharps counted by scrub and verified by R.N. 16:53:27 [place] band inflated with 10cc of air. 16:53:29 Insertion/operative site no bleeding no hematoma. 16:53:38 Post right radial artery:stable 16:53:39 Post Procedure Pulses reassessed and unchanged 16:53:42 Post procedure rhythm: unchanged. 16:53:44 Estimated blood loss: 5 ml 16:53:46 Post procedure instruction explained to patient.Patient verbalizes understanding. 16:54:05 Procedure type changed to Cath procedure, Diagnostic procedure, LHC, C w/Coronaries, FFR/IVUS, FFR Initial, FFR Additional, Sedation Charges, Moderate Sedation up to 30 minutes 16:55:15 Procedure and supply charges have been captured, reviewed, submitted and are correct. 16:55:19 Procedure Complication : No complications 16:55:22 Vital chart was stopped 16:55:27 [facility] Findings: MVD- MD will discuss options w/ pt 16:55:29 Operative report dictated upon procedure completion. 16:55:30 See physician's report for complete and final results. 16:55:40 Report given to Pre/Post Procedure Room. 16:55:42 Patient transfered to Pre/Post Procedure Room with Stretcher. 16:55:44 Procedure ended. 16:55:44 Full Disclosure recording stopped 16:55:48 End room use (Document Last) 16:56:44 ACT drawn and resulted at out of range high seconds. (normal therapeutic range 180-240 seconds). 16:57:21 End room use (Document Last) 16:57:41 End room use (Document Last) Device Usage Item Name Manufacture Quantity Catalog Hospital Part Current Mini mal Lot# / Number Charge Number Stock Stock Serial# Code ACIST Acist 1 63306 629890 324734 389210 20 Plehn Analytics (46568) Mati [employer] Inc Medline Medline 1 [id number] 285492 39381 652027 5 Cath Pack ([id number]) Bag Microtek 1 379267 92569 495679 5 Decanter Medical Inc. () ACIST Hand Acist 1 98401 919556 527136 475669 5 Control Medical (68995) Systems Inc ACIST Acist 1 12266 616617 955300 729249 5 Manifold Medical (60735) Systems Inc Tegaderm 4 3M 1 1626W 624491 343406 690897 5 x 4 (1626W) MBrace Advanced 1 140-0250-00 933610 23456 663141 5 Wrist Vascular Support Dynamics ([id number]) NEEDLE Cook Cook Medical 1 N60659 242706 860103 079473 5 21G 4cm Radial (Q71720) SHEATH 6FR Cardinal 1 5876518 201388 1554376 328756 5 [facility] (0093323) EMERALD Cardinal 1 679-083 986079 228204 510590 5 Guide Wire Health (493-524) DIAGNOSTIC Terumo 1 40-5023 339112 793848 265229 5 Yury 110cm 5Fr catheter (256858) Ocoee Ocoee 1 [id number] 050664 [id number] 011601 5 Verrata Plus pressure wire (39298R) TUBING High Merit 1 [id number] 515037 20472 865789 10 Pressure Medical Extension Tubing (Madison) (TU7074L) INFLATOR Merit 1 OJ3449 854724 091639 655979 15 Merit Medical BasixCompak (QM7351) ZEPHYR Cardinal 1 509120 104233 3884806 698132 5 REGULAR TR Health BAND (280709) Signature Audit [place] Stage Time Signature Unsigned Intra-Procedure 09/10/2019 Keysha Hanna 4:57:21 PM RT(R) Intra-Procedure 09/10/2019 Joyce Koch RN 4:57:41 PM Intra-Procedure 09/10/2019 Bernard Madison MD 4:58:02 PM [place] [id number] [place] [address]
[2019-09-10 12:58] VITALS: BP 100/70; Ht 167.6 cm; Wt 76.4 kg
[2019-09-10 13:21] LABS: ANION GAP 9.6 mmol/L (8-16); BASOPHILS 0.1 % (0-2); CALCIUM 10.1 mg/dL (8.5-10.1); CARBON DIOXIDE 31.4 mmol/L (21.0-32.0); CHOL - HDL RATIO 6.7 ratio (2.3-4.9); CREATININE - SERUM 1.5 mg/dL (0.6-1.3); EOSINOPHILS 0 % (0-7); HEMATOCRIT 40.1 % (42.0-54.0); HEMOGLOBIN 13.2 g/dL (13.5-17.5); IMMATURE GRANULOCYTES 0.3 % (0-5); LDL-HDL RATIO 4.1 ratio (1.5-3.5); LYMPHOCYTES 4.4 % (15-50); MCH 30.1 pg (26.0-34.0); MCHC 32.9 g/dL (31.0-37.0); MCV 91.6 fL (80.0-100.0); MONOCYTES 2.9 % (2-11); NEUTROPHILS 92.3 % (40-80); RBC 4.38 10x6/uL (4.20-6.10); RDW 14.6 % (11.5-14.5); WBC 17.8 10x3/uL (4.8-10.8)
[2019-09-10 13:27] LABS: PLATELET COUNT 281 10x3/uL (130-400)
[2019-09-10] MEDS ORDERED: FUROSEMIDE20 MG PO (14:23)
[2019-09-10] MEDS ORDERED: KLOR-CON 1010 MEQ PO (14:24)
--- NOTE | 2019-09-10 17:05 | NUR ---
PT REC'D TO ROOM 3 VIA STRETCHER FROM [employer]. MONITORS ESTAB. DR. SWANSON IN TO SEE PT - UPDATE GIVEN AND QUESTIONS ANSWERED. SEE COMMUNICATIONS COORDINATOR. ALARMS ON AND C/L IN REACH.
--- NOTE | 2019-09-10 17:20 | NUR ---
PT SITTING UP IN BED. R WRIST SITE C/D/I, NO S/S BLEEDING OR HEMATOMA. R HAND WARM, PULSES PALP. SANDWICH TRAY AND COLA PROVIDED. C/L IN REACH.
--- NOTE | 2019-09-10 17:49 | NUR ---
SPOKE WITH PTS , UPDATE GIVEN, DISCHARGE INSTRUCTIONS REVIEWED. PLAN FOR PT D/C AT 1999. R WRIST SITE C/D/I, NO S/S BLEEDING OR HEMATOMA.
--- NOTE | 2019-09-10 18:04 | NUR ---
R WRIST SITE C/D/I, NO S/S BLEEDING OR HEMATOMA. VSS B/P 143/42 HR 83. PT DENIES PAIN OR NEEDS.
--- NOTE | 2019-09-10 18:20 | NUR ---
PT VOIDED 150ML CLEAR, YELLOW URINE IN URINAL. VSS. R WRIST SITE C/D/I, NO S/S/ BLEEDING OR HEMATOMA.
--- NOTE | 2019-09-10 18:45 | NUR ---
5 CC AIR REMOVED FROM Z BAND, NO S/S BLEEDING OR SWELLING. B/P 132/56 HR 76. PT DENIES NEEDS.
--- NOTE | 2019-09-10 19:00 | NUR ---
7CC AIR TOTAL REMOVED FROM Z BAND, NO S/S BLEEDING OR HEMATOMA.
--- NOTE | 2019-09-10 19:14 | NUR ---
ALL AIR REMOVED FROM Z BAND, NO S/S BLEEDING OR HEMATOMA, VSS. WILL CONT CLOSE MONITORING. PT DENIES NEEDS. C/L IN REACH.
--- NOTE | 2019-09-10 19:29 | NUR ---
R WRIST SITE C/D/I. PIV D/C'D INTACT AND DSG APPLIED. PT ALLOWED UP TO GET DRESSED AND GO TO BR INDEPENDENTLY.
--- NOTE | 2019-09-10 19:40 | NUR ---
Z BAND REMOVED, NO S/S BLEEDING OR SWELLING. DSG AND ARM BOARD APPLIED.
--- NOTE | 2019-09-10 19:45 | NUR ---
ALL D/C INSTRUCTIONS REVIEWED WITH PT - INCLUDING RESTRICTIONS, MEDS AND PLAN FOR RETURN ON SUNDAY. DR. KOLB OFFICE WILL CALL IN AM WITH INSTRUCTIONS. PT VERBALIZES UNDERSTANDING.
--- NOTE | 2019-09-10 19:50 | NUR ---
PT TAKEN DOWN VIA AND D/C'D TO PRIVATE VEHICLE. PT HAS ALL PAPER WORK AND BELONGINGS.
== END 2019-09-10 19:50 | disposition home or self-care (01) ==
LOC: D.CATH 12:14
PROVIDERS: ATTEND Internal Medicine Cardiovascular Disease
DX: I25.119 Atherosclerotic heart disease of native coronary artery with unspecified angina pectoris (principal); I11.0 Hypertensive heart disease with heart failure; I50.9 Heart failure, unspecified; I44.7 Left bundle-branch block, unspecified; I42.9 Cardiomyopathy, unspecified; K21.9 Gastro-esophageal reflux disease without esophagitis; E03.9 Hypothyroidism, unspecified; E78.5 Hyperlipidemia, unspecified

== ENCOUNTER 2019-09-12 06:55 | Outpatient (CLI) | payer MEDICARE, OTHER ==
[~2019-09-12] VITALS: Ht 168.9 cm; Wt 76.4 kg
--- NOTE | ~2019-09-12 | HEMODYNAMI ---
PATIENT:DON MORA MEDICAL RECORD: [id number] : 47 LOCATION:[facility] ADMISSION DATE: 09/12/19 Generatedon:09/12/201910:17 Patient name: DON MORA Patient #: [id number] SSN: [id number] : 1945 Date of study: 09/12/2019 Page: Of Hemodynamic Procedure Report Patient Data Patient Demographics Procedure consent was obtained First Name: DON Gender: Male Last Name: MORGAN : 1945 Middle Initial: FILIBERTO Age: 74 year(s) Patient #: [id number] Race: SSN: [id number] Additional ID: [id number] Contact details Address: [address] [place] [address] State: [place] City: [place] Zip code: [address] Past Medical History Allergies Allergen Reaction Date Comments Reported Other allergy 09/10/2019 SHELLFISH, CRAB, Admission Admission Data Admission Date: 09/12/2019 Admission Time: 6:55 Arrival Date: 09/12/2019 Arrival Time: 0:00 Admit Source: Other Insurance Payor: Medicare [facility] #: [id number] Height (in.): 66.5 BSA: 1.87 (m2) Height (cm.): 168.91 BMI: 26.76 (kg/m2) Weight (lbs.): 168.35 Weight (kg.): 76.36 Lab Results Lab Result Date: 09/12/2019 Lab Result Time: 0:00 Biochemistry Name Units Result Min Max BUN mg/dl 21 --(----)-* 7 18 Creatinine mg/dl 1.4 --(----)*- 0.6 1.3 eGFR ml/min 53 *-(----)-- 90 120 NONAFRICAN CBC Name Units Result Min Max Hematocrit % 39.5 -*(----)-- 42 54 Hemoglobin g/dl 12.8 -*(----)-- 13.5 17.5 Procedure Procedure Types Cath Procedure Diagnostic Procedure Sedation Charges Moderate Sedation up to 15 minutes Moderate Sedation up to 45 minutes PCI Procedure Coronary Stent Coronary Stent Initial x2 Hemochron ACT Test Procedure Description Procedure Date Procedure Date: 09/12/2019 Procedure Start Time: 9:03 Procedure End Time: 10:10 Procedure Staff Name Function Bernard Madison MD Performing Physician Keysha Hanna RT Monitor Traci Muniz RT Scrub Joyce Koch RN Nurse Procedure Data Cath Procedure Fluoroscopy Diagnostic fluoroscopy Total fluoroscopy Time: time: 12.9 min 12.9 min Diagnostic fluoroscopy Total fluoroscopy dose: dose: 1147 mGy 1147 mGy Contrast Material Contrast Material Type Amount (ml) Isovue 300 96 Entry Location Entry Primary Successful Side Size Upsize Upsize Entry Closure Ortega ccessful Closure Location (Fr) 1 (Fr) 2 (Fr) Remarks Device Remarks Femoral Left 5 Fr Manual vein Compression Femoral Left 6 Fr Exoseal artery Short Estimated blood loss: 5 ml Procedure Complications No complications Procedure Medications Medication Administration Route Dosage Oxygen etCO2 Nasal cannula 2 l/min Lidocaine 2% added to field 20 Heparin Flush Bag added to field 2 bags (1000units/500ml NS) 0.9% NaCl I.V. 100 ml/hr Versed I.V. 1 mg Fentanyl I.V. 50 mcg Versed I.V. 1 mg Fentanyl I.V. 50 mcg Versed I.V. 1 mg Versed I.V. 1 mg Heparin Bolus I.V. 7500 units Nitroglycerin IC/IA I.C. 50 mcg Versed I.V. 1 mg Versed I.V. 1 mg Hemodynamics Rest BSA: 1.87 (m2) HGB: 12.8 (g/dl) O2 Consumption: Estimated: 221.45 (ml/min) O2 Co nsumption indexed: Estimated:118.42 (ml/min/m) Heart Rate: 78 (bpm) Snapshots Pre Cath Intra NCS Post Cath Vital Signs Time Heart Resp SPO2 etCO2 NIBP (mmHg) Rhythm Pain Sedation Rate (ipm) (%) (mmHg) Status Level (bpm) 8:47:25 89 11 95 8.9 130/71(99) A-Fib 0 (11) 10(A) , No pain 8:51:33 76 14 89 16.4 104/72(96) A-Fib 0 (11) 10(A) , No pain 8:55:43 85 15 93 0 101/56(76) A-Fib 0 (11) 10(A) , No pain 8:59:53 79 13 88 0 101/53(82) A-Fib 0 (11) 10(A) , No pain 9:03:58 74 26 90 0 107/54(70) A-Fib 0 (11) 10(A) , No pain 9:08:04 75 14 92 22.4 96/53(67) A-Fib 0 (11) 9(A) , No pain 9:12:12 91 22 92 0 90/59(85) A-Fib 0 (11) 9(A) , No pain 9:16:16 84 12 93 0 100/59(83) A-Fib 0 (11) 9(A) , No pain 9:20:25 81 11 91 0 98/56(84) A-Fib 0 (11) 9(A) , No pain 9:24:31 75 11 94 0 100/63(83) A-Fib 0 (11) 9(A) , No pain 9:28:41 82 11 90 0 108/57(98) A-Fib 0 (11) 9(A) , No pain 9:32:55 86 10 93 0 108/54(73) A-Fib 0 (11) 9(A) , No pain 9:37:05 68 12 93 0 95/59(69) A-Fib 0 (11) 9(A) , No pain 9:41:13 75 10 92 0.7 101/53(68) A-Fib 0 (11) 9(A) , No pain 9:45:23 75 13 93 14.9 107/57(77) A-Fib 0 (11) 9(A) , No pain 9:49:31 70 11 94 29.9 121/66(85) A-Fib 0 (11) 9(A) , No pain 9:53:45 78 11 92 0 114/67(97) A-Fib 0 (11) 9(A) , No pain 9:57:56 81 10 92 2.2 106/63(85) A-Fib 0 (11) 9(A) , No pain 10:02:02 82 10 93 14.9 120/75(104) A-Fib 0 (11) 9(A) , No pain 10:06:14 67 11 93 1.4 122/72(100) A-Fib 0 (11) 10(A) , No pain 10:10:26 76 11 93 19.4 113/67(94) A-Fib 0 (11) 10(A) , No pain Medications Time Medication Route Dose Verified Delivered Reason Notes Effectiveness by by 8:46:24 Oxygen etCO2 2 Bernard Buffie used for Nasal l/min Los Koch RN procedure cannula 8:46:31 Lidocaine 2% added 20ml Bernard Bernard for local to vial Los Madison MD anesthetic field 8:46:37 Heparin Flush added 2 Bernard Bernard used for Bag to bags Los Madison MD procedure (1000units/500ml field NS) 8:46:46 0.9% NaCl I.V. 100 Bernard Buffie Per physician ml/hr Los Koch RN 9:00:26 Versed I.V. 1 mg Bernard Buffie for sedation Los Koch RN 9:00:31 Fentanyl I.V. 50 Bernard Buffie for sedation mcg Los Koch RN 9:04:26 Versed I.V. 1 mg Bernard Buffie for sedation Los Koch RN 9:04:32 Fentanyl I.V. 50 Bernard Buffie for sedation mcg Los Koch RN 9:12:02 Versed I.V. 1 mg Bernard Buffie for sedation Los Koch RN 9:29:04 Versed I.V. 1 mg Bernard Buffie for sedation Los Koch RN 9:34:32 Heparin Bolus I.V. 7500 Bernard Buffie for verifi ed units Los Koch RN anticoagulation with dr madison 9:45:46 Versed I.V. 1 mg Bernard Buffie for sedation Los Koch RN 9:53:08 Nitroglycerin I.C. 50 Bernard Bernard for IC/IA mcg Los Madison MD vasodilation 9:58:19 Versed I.V. 1 mg Bernard Buffie for sedation Los Koch RN Procedure Log Time Note 8:03:18 Informed consent obtained and on chart 8:03:25 Diagnostic Cath Status : Elective 8:03:50 Arrival Date: 09/12/2019 12:00:00 AM 8:03:51 Admit Source: Other 8:18:42 Patient Height : 66.5 inches 8:18:48 Patient Weight : 168.35 lbs 8:18:57 Insurance Payor : Medicare 8:23:00 Lab Result : eGFR NONAFRICAN 53 ml/min 8:23:00 Lab Result : Creatinine 1.4 mg/dl 8:23:00 Lab Result : BUN 21 mg/dl 8:23:00 Hemodynamic formulas in Rest were re-calculated based on hemoglobin value from 09/12/2019 12:00:00 AM 8:23:00 Lab Result : Hemoglobin 12.8 g/dl 8:23:00 Lab Result : Hematocrit 39.5 % 8:30:30 Joyce Koch RN sent for patient. Start room use. 8:46:14 Vital chart was started 8:46:24 Oxygen 2 l/min etCO2 Nasal cannula was administered by Joyce Koch RN; used for procedure; Verbal order read back and verified. 8:46:31 Lidocaine 2% 20ml vial added to field was administered by Bernard Madison MD ; for local anesthetic; Verbal order read back and verified. 8:46:37 Heparin Flush Bag (1000units/500ml NS) 2 bags added to field was administered by Bernard Madison MD; used for procedure; Verbal order read back and verified. 8:46:46 0.9% NaCl 100 ml/hr I.V. was administered by Joyce Koch RN; Per physician; Verbal order read back and verified. 8:52:27 Procedure Status Urgent Heart Cath (IP). 8:52:37 Time tracking: Regular hours (M-F 7:00 - 5:00) 8:52:41 Plan of Care:Hemodynamics will remain stable., Cardiac rhythm will remain stable., Comfort level will be maintained., Respiratory function will remain adequate., Patient/ family verbilizes understanding of procedure., Procedure tolerated without complication., Recovers from procedure without complications.. 8:52:48 Patient received from Med II to CCL 1 Alert and oriented. Tansferred to table in Supine position. 8:52:49 Warm blankets applied, and coleen hugger turned on for patient comfort. 8:52:49 Correct patient and procedure confirmed by team. 8:52:50 ECG and BP/O2 sat monitors applied to patient. 8:52:51 Baseline sample Acquired. 8:53:30 Full Disclosure recording started 8:53:38 H&P Date Dictated: 09/12/2019 Within 30 days and on chart.. 8:53:40 Pre-procedure instructions explained to patient. 8:53:40 Pre-op teaching completed and patient verbalized understanding. 8:53:44 Family unavailable. 8:53:46 Patient NPO since Midnight. 8:53:51 Is the patient allergic to Iodine/contrast media? No. 8:53:52 Was the patient premedicated? Yes 8:53:53 Is patient on blood thinner?Yes 8:53:57 ACC The patient was administered the following blood thiners within the last 24 hours: ACCPlavix 8:54:00 Patient diabetic? No. 8:54:02 Previous problem with sedation/anesthesia? No ? 8:54:04 Snore? Yes 8:54:05 Sleep apnea? No 8:54:05 Deviated septum? No 8:54:06 Opens mouth fully? Yes 8:54:07 Sticks out tongue? Yes 8:54:14 Airway obstruction? Yes COPD 8:54:17 Dentures? No ? 8:54:24 Pre procedure: right dorsailis pedis pulse 1+ Palpable, but thready & weak; easily obliterated 8:54:27 Pre procedure: left dorsailis pedis pulse 1+ Palpable, but thready & weak; easily obliterated 8:54:34 Patient pain scale 0/10 ?. 8:54:44 IV patent on arrival in right antecubital with 0.9% NaCl at KVO. 8:54:46 Lab results completed and on chart. 8:54:53 Stress Test: no; N/A ? 8:59:33 Risk of Mortality: 0.1 8:59:37 Risk of blood transfusion: 0.6 8:59:41 Risk of JAILENE: 2.2 9:00:14 Right groin area was prepped with chlora-prep and draped in sterile fashion 9:00:15 Alarms reviewed by R. N. 9:00:16 Sharps counted by scrub and verified by R.N. 9:00:17 Physician arrived 9:00:17 Physician arrived 9:00:18 --------ALL STOP TIME OUT------ 9:00:18 Final Timeout: patient, procedure, and site verified with staff and physician. All members of the team are in agreement. 9:00:20 Right groin site verified by team. 9:00:24 Fire Safety Assessment: A--An alcohol-based skin anteseptic being used preoperatively., C--Open oxygen or nitrous oxide is being used., D--An ESU, laser, or fiber-optic light is being used. 9:00:26 Versed 1 mg I.V. was administered by Joyce Koch RN; for sedation; Verbal order read back and verified. 9:00:27 Physical assessment completed. ASA score P 2 - A patient with mild systemic disease as per Bernard Madison MD. 9:00:31 Fentanyl 50 mcg I.V. was administered by Joyce Koch RN; for sedation; Verbal order read back and verified. 9:00:32 3a) 45-59 Moderately reduced kidney function. 9:00:36 Maximum allowable contrast dose (3.7 X eGFR X 0.75)147 ml. 9:00:40 Sedation plan: IV Moderate Sedation Medication:Versed, Fentanyl 9:00:50 Use device set CATH PACK 9:00:52 ACIST Syringe (43476) opened to sterile field. 9:00:52 ACIST Hand Control (47858) opened to sterile field. 9:00:52 ACIST Manifold (59065) opened to sterile field. 9:00:53 Medline Cath Pack ([id number]) opened to sterile field. 9:00:53 Bag Decanter (2002S) opened to sterile field. 9:00:54 KEVALD Guide Wire (385-399) opened to sterile field. 9:01:07 Rhythm: atrial fibrillation 9:01:12 SHEATH 6FR [place] (AMB569) opened to sterile field. 9:01:12 INFLATOR Merit BasixCompak (QO6676) opened to sterile field. 9:01:13 BMW 300cm [place] 2 J wire ([id number]) opened to sterile field. 9:01:13 BMW 300cm [place] 2 J wire ([id number]) opened to sterile field. 9:01:21 GUIDE 6FR XBLAD 3.5 catheter ([id number]) opened to sterile field. 9:01:25 Procedure started. 9:03:26 Patients notified of start of procedure 9:03:30 Local anesthetic to right femoral artery with Lidocaine 2% by Bernard vaca MD.INITIAL ACCESS ONLY 9:04:26 Versed 1 mg I.V. was administered by Joyce Koch RN; for sedation; Verbal order read back and verified. 9:04:32 Fentanyl 50 mcg I.V. was administered by Joyce Koch RN; for sedation; Verbal order read back and verified. 9:12:02 Versed 1 mg I.V. was administered by Joyce Koch RN; for sedation; Verbal order read back and verified. 9:14:15 MICROPUNCTURE 4FR Cook (N10800) opened to sterile field. 9:20:29 difficulty gaining access to RFA, Prepping LFA in sterile fashion 9:23:17 Local anesthetic to left femerol artery with Lidocaine 2% by Bernard Madison MD.ADDITIONAL ACCESS 9:28:41 A 5 Fr sheath was inserted into the Left Femoral vein 9:29:04 Versed 1 mg I.V. was administered by Joyce Koch RN; for sedation; Verbal order read back and verified. 9:30:41 Access obtained with 4Fr micropunture. 9:31:00 A 6 Fr Short sheath was inserted into the Left Femoral artery 9:31:11 6 Fr xblad 3.5 guide catheter was inserted over the wire 9:33:11 BMW wire advanced. 9:34:32 Heparin Bolus 7500 units I.V. was administered by Joyce Koch RN; for anticoagulation; verified with dr madison Verbal order read back and verified. 9:37:36 Dr. Madison advanced BMW wires down LCX and LAD 9:39:08 Wire advanced across lesion. 9:45:46 Versed 1 mg I.V. was administered by Joyce Koch RN; for sedation; Verbal order read back and verified. 9:45:47 Place stent Inflation Number: 1 A LENCHO OTW 3.0 x 12 stent ([id number]) was prepped and advanced across the Prox LAD 90. The stent was deployed at 12 CHERRIE for 0:10 (min:sec) 0. 9:47:10 Stent catheter was removed intact over wire. 9:50:00 The EMERGE OTW 2.5 x 15 balloon ([id number]) was advanced and then removed because of failure to cross lesion 9:52:07 Inflate balloon Inflation number: 1 A EMERGE OTW 2.0 x 12 balloon ([id number]) was prepped and advanced across the Prox CX 80, then inflated to 10 CHERRIE for 0:10 (min:sec) 0. 9:52:22 Balloon removed over the wire. 9:53:08 Nitroglycerin IC/IA 50 mcg I.C. was administered by Bernard Madison MD; for vasodilation; Verbal order read back and verified. 9:58:19 Versed 1 mg I.V. was administered by Joyce Koch RN; for sedation; Verbal order read back and verified. 10:03:19 Place stent Inflation Number: 2 A LENCHO RX 3.0 x 12 stent ([id number]) was prepped and advanced across the Prox CX 80. The stent was deployed at 10 CHERRIE for 0:10 (min:sec) 0. 10:04:32 Stent catheter was removed intact over wire. 10:04:33 Wire removed. 10:04:34 Wire removed. 10:04:36 Guide catheter removed. 10:04:44 EXOSEAL 6Fr (EX600) opened to sterile field. 10:05:37 Sheath removed intact; hemostasis achieved with Manual Compression to the Left Femoral vein. 10:05:43 Sheath removed intact; hemostasis achieved with Exoseal to the Left Femoral artery. 10:05:54 Procedure ended.(Physican Out) 10:05:59 Fluoroscopy time 12.90 minutes. 10:06:04 Flurop Dose total: 1147 10:06:04 Fluoroscopy dose: 1147 mGy 10:06:10 Dose Area Product 82013 mGy/cm. 10:07:45 Contrast amount:Isovue 300 96ml. 10:07:49 Maximum allowable dose exceeded? No. 10:07:50 Sharps counted by scrub and verified by R.N. 10:07:53 Insertion/operative site no bleeding no hematoma. 10:07:55 Post-op/insertion site Right Femoral artery dressed using a 4 x 4 and Tegaderm. 10:07:56 Post Procedure Pulses reassessed and unchanged 10:07:59 Post procedure rhythm: unchanged. 10:08:02 Estimated blood loss: 5 ml 10:08:04 Post procedure instruction explained to patient.Patient verbalizes understanding. 10:08:04 Patient needs reinforcement of post procedure teaching. 10:09:56 Procedure type changed to Cath procedure, Diagnostic procedure, Sedatio n Charges, Moderate Sedation up to 15 minutes, Moderate Sedation up to 45 minutes, PCI procedure, Coronary Stent, Coronary Stent Initial x2, Hemochron ACT Test 10:09:57 Procedure and supply charges have been captured, reviewed, submitted an d are correct. 10:10:01 Procedure Complication : No complications 10:10:04 Vital chart was stopped 10:10:06 [facility] Findings: MVD- PCI performed (see procedure note) 10:10:08 Operative report dictated upon procedure completion. 10:10: See physician's report for complete and final results. 10:10:23 Report given to Pre/Post Procedure Room. 10:10: Patient transfered to Pre/Post Procedure Room with Stretcher. 10:10:28 Procedure ended. 10:10: Full Disclosure recording stopped 10:10:40 ACC-PCI Only Patient was given prescriptions, or instructed by Bernard Madison MD to start/continue the following medications upon discharge: Plavix 10:10:42 End room use (Document Last) 10:12:22 ACT drawn and resulted at out of range high seconds. (normal therapeuti c range 180-240 seconds). 10:16:09 - 10:16:46 - Intervention Summary Intervention Notes Time ActionType Lesion and Equipment Used Action# Pressure Duration Attributes 9:45:47 Place stent Prox LAD LENCHO OTW 3.0 x 1 12 00:10 12 stent ([id number]) 9:50:00 Discard EMERGE OTW 2.5 Balloon x 15 balloon ([id number]) 9:52:07 Inflate Prox CX EMERGE OTW 2.0 1 10 00:10 balloon x 12 balloon ([id number]) 10:03:19 Place stent Prox CX LENCHO RX 3.0 x 2 10 00:10 12 stent ([id number]) Device Usage Item Name Manufacture Quantity Catalog Number Hospital Part Current Minimal Lot# / Charge Number Stock Stock Serial# Code ACIST Syringe Acist 1 28104 864684 552812 793442 20 (68213) Medical Systems Inc ACIST Hand Acist 1 42712 574607 225790 721143 5 Control Medical (27361) Systems Inc ACIST Manifold Acist 1 42217 790068 544500 703722 5 (18223) Medical Systems Inc Medline Cath Medline 1 [id number] 274014 60268 830429 5 Pack ([id number]) Bag Decanter Microtek 1 2001S 695696 90356 304329 5 () Medical Inc. EMERALD Guide Cardinal 1 502-455 141963 964171 347603 5 Wire (502-455) Health SHEATH 6FR Terumo 1 VZN093 617102 107572 859027 40 [place] (KJL852) INFLATOR Merit Merit 1 XT5371 943587 459383 355088 15 [facility] (HP0658) BMW 300cm [place] 2 [id number] 702215 086351 041052 5 [place] 2 J Vascular wire ([id number]) GUIDE 6FR Cardinal 1 [id number] 082712 423839 443486 10 XBLAD 3.5 Health catheter (78056511) MICROPUNCTURE [employer] 1 [id number] 989371 045831 438160 5 4FR Cook (D06563) LENCHO OTW 3.0 x Medtronic 1 [id number] 104798 6779181 910250 5 [id number] 12 stent ([id number]) EMERGE OTW 2.5 Knapp 1 [id number] 677184 175503 141794 5 [id number] x 15 balloon Scientific ([id number]) EMERGE OTW 2.0 Knapp 1 [id number] 963163 943066 985484 5 [id number] x 12 balloon Scientific ([id number]) LENCHO RX 3.0 x Medtronic 1 [id number] 472147 4277285 445488 5 [id number] 12 stent ([id number]) EXOSEAL 6Fr Cardinal 1 EX600 888435 573736 560978 10 (EX600) Health Signature Audit [place] Stage Time Signature Unsigned Intra-Procedure 09/12/2019 Keysha Hanna 10:16:09 AM RT(R) Intra-Procedure 09/12/2019 Joyce Koch RN 10:16:46 AM Intra-Procedure 09/12/2019 Bernard Madison MD 10:17:17 AM [place] [id number]
[~2019-09-12 06:55] MED LIST changes: +FUROSEMIDE20 MG PO; +KLOR-CON 1010 MEQ PO
[2019-09-12 07:36] VITALS: BP 99/52; Ht 168.9 cm; Wt 76.4 kg
[2019-09-12 07:39] LABS: BASOPHILS 0.1 % (0-2); EOSINOPHILS 0.4 % (0-7); HEMATOCRIT 39.5 % (42.0-54.0); HEMOGLOBIN 12.8 g/dL (13.5-17.5); IMMATURE GRANULOCYTES 0.3 % (0-5); LYMPHOCYTES 11.8 % (15-50); MCH 29.8 pg (26.0-34.0); MCHC 32.4 g/dL (31.0-37.0); MCV 92.1 fL (80.0-100.0); MEAN PLATELET VOLUME 10.7 fL (7.4-10.4); MONOCYTES 9.2 % (2-11); NEUTROPHILS 78.2 % (40-80); RBC 4.29 10x6/uL (4.20-6.10); RDW 15.3 % (11.5-14.5)
[2019-09-12 07:43] LABS: PLATELET COUNT 208 10x3/uL (130-400); WBC 12.7 10x3/uL (4.8-10.8)
[2019-09-12 07:49] LABS: ANION GAP 11.8 mmol/L (8-16); CALCIUM 9.7 mg/dL (8.5-10.1); CARBON DIOXIDE 31.2 mmol/L (21.0-32.0); CREATININE - SERUM 1.4 mg/dL (0.6-1.3)
--- NOTE | 2019-09-12 10:32 | NUR ---
PT ARRIVED BY STRETCHER. PLACED ON MONITORS. ASSESSMENT COMPLETED. VSS. CALL LIGHT WITHIN REACH.
--- NOTE | 2019-09-12 10:47 | NUR ---
PT RESTING COMFORTABLY. VSS. LEFT GROIN DRESSING C/D/I. NO S/S OF HEMATOMA NOTED. CALL LIGHT WITHIN REACH.
--- NOTE | 2019-09-12 10:47 | NUR ---
PT RESTING COMFORTABLY. LEFT GROIN DRESSING C/D/I. NO S/S OF HEMATOMA NOTED. VSS. CALL LIGHT WITHIN REACH.
--- NOTE | 2019-09-12 11:15 | NUR ---
LEFT GROIN DRESSING C/D/I. NO S/S OF HEMATOMA NOTED. VSS. CALL LIGHT WITHIN REACH. PT RESTING COMFORTABLY AT THIS TIME.
--- NOTE | 2019-09-12 11:45 | NUR ---
LEFT GROIN DRESSING C/D/I. NO S/S OF HEMATOMA NOTED. CALL LIGHT WITHIN REACH. VSS AT THIS TIME. DENIES NAUSEA/PAIN.
--- NOTE | 2019-09-12 12:15 | NUR ---
DR. SWANSON ROUNDED AND SPOKE WITH PT. PT'S LEFT GROIN DRESSING C/D/I. NO S/S OF HEMATOMA NOTED. CALL LIGHT WITHIN REACH. PT VOIDED APPROX 200cc OF CLEAR YELLOW URINE IN URINAL WITHOUT DIFFICULTY. PT TOLERATING SIPS OF WATER AT THIS TIME.
--- NOTE | 2019-09-12 12:49 | NUR ---
LEFT GROIN DRESSING C/D/I. NO S/S OF HEMATOMA NOTED. CALL LIGHT WITHIN REACH. VSS AT THIS TIME.
--- NOTE | 2019-09-12 13:10 | NUR ---
LEFT GROIN DRESSING C/D/I. NO S/S OF HEMATOMA NOTED. CALL LIGHT WITHIN REACH. HEAD OF BED INC TO 30 DEGREES. TOLERATED WELL. SET UP WITH SANDWICH TRAY AND DRINK AT THIS TIME. DENIES NAUSEA/PAIN. WILL CONTINUE TO MONITOR. CALLED PT'S AND UPDATED HER ON DISCHARGE TIME.
--- NOTE | 2019-09-12 13:55 | NUR ---
LEFT GROIN DRESSING C/D/I. NO S/S OF HEMATOMA NOTED. PIV D/C'D WITH CATH TIP INTACT. TOLERATED WELL. DISCUSSED DISCHARGE INSTRUCTIONS WITH PT. HE VOICED UNDERSTANDING. PT INSTRUCTED TO GET DRESSED. NO ASSISTANCE NEEDED AT THIS TIME. CALL LIGHT WITHIN REACH.
--- NOTE | 2019-09-12 14:10 | NUR ---
PT TAKEN DOWN TO VEHICLE BY WHEELCHAIR. NO S/S OF DISTRESS NOTED. ALL BELONGINGS AND PAPERWORK IN HAND.
== END 2019-09-12 14:10 | disposition home or self-care (01) ==
LOC: D.CATH 06:55
PROVIDERS: ATTEND Internal Medicine Cardiovascular Disease
DX: I25.119 Atherosclerotic heart disease of native coronary artery with unspecified angina pectoris (principal); I11.0 Hypertensive heart disease with heart failure; I50.9 Heart failure, unspecified; I44.7 Left bundle-branch block, unspecified; I42.9 Cardiomyopathy, unspecified; K21.9 Gastro-esophageal reflux disease without esophagitis; E78.5 Hyperlipidemia, unspecified; E03.9 Hypothyroidism, unspecified
CPT/HCPCS: C9600 ×2

== ENCOUNTER → 2020-01-08 12:27 | Outpatient (CLI) | payer MEDICARE, OTHER ==
[2019-09-12 07:36] VITALS: BMI 26.7
== END | disposition home or self-care (01) ==
LOC: D.HCCECHO 12:27
PROVIDERS: ATTEND Internal Medicine Cardiovascular Disease
DX: I25.10 Atherosclerotic heart disease of native coronary artery without angina pectoris (principal)